=== PATIENT | female | born 1960 | race Caucasian/White ===

== ENCOUNTER 2020-12-27 12:24 | Emergency (ER) | payer OTHER ==
--- NOTE | 2020-12-27 14:00 | EDPHYS ---
Physician Documentation [facility] Name: Khloe Valentino Age: 60 yrs Sex: Female : 1960 Arrival Date: 12/27/2020 Time: 12:26 Bed 11 Private MD: ED Physician Chris Givens HPI: 12/27 13:45 This 60 yrs old Female presents to ER via Ambulatory with complaints of cp Insect Bite. 13:45 The patient's rash thought to be caused by an unknown cause. The rash is located on the cp right suprapubic area and left arm. The rash can be described as burning. Onset: The symptoms/episode began/occurred 2 day(s) ago. Associated signs and symptoms: Pertinent positives: burning sensation, itching, Pertinent negatives: difficulty breathing, fever. Treatment given at home: none. Historical: - Allergies: 12:36 Keflex; ll1 - PMHx: 12:36 None; ll1 - PSHx: 12:36 None; ll1 - Immunization history:: Client reports receiving the 2nd dose of the Covid vaccine, Last tetanus immunization: unknown, Flu vaccine status is unknown. - Social history:: Smoking status: Patient/guardian denies using tobacco, Stopped _ months ago 2. ROS: 13:50 Eyes: Negative for injury, pain, redness, and discharge. cp 13:50 Constitutional: Negative for fever. 13:50 Respiratory: Negative for cough, shortness of breath, wheezing. 13:50 Abdomen/GI: Negative for abdominal pain, nausea, vomiting, and diarrhea. 13:50 Skin: Positive for rash, of the left arm and right suprapubic area. Exam: 13:51 Head/Face: Normocephalic, atraumatic. cp 13:51 Constitutional: The patient appears in no acute distress, alert, awake, non-toxic, well developed, well nourished. 13:51 Cardiovascular: Rate: tachycardic. 13:51 Respiratory: the patient does not display signs of respiratory distress, Respirations: normal. 13:51 Abdomen/GI: Exam negative for discomfort, distension, guarding, Inspection: abdomen appears normal. 13:51 Skin: rash can be described as grouped erythematous vesicles noted to right suprapubic area, isolated erythematous papules noted to left forearm. Vital Signs: 12:34 BP 130 / 109; Pulse 100; Resp 16; Temp 98.1; Pulse Ox 99% ; Weight 53.07 kg; Height 5 ll1 ft. 2 in. (157.48 cm); Pain 3/10; 12:34 Body Mass Index 21.40 (53.07 kg, 157.48 cm) ll1 MDM: 13:48 Patient medically screened. cp 13:55 Differential diagnosis: herpes, folliculitis, cellulitis, abscess. cp 13:59 Data reviewed: vital signs, nurses notes, and as a result, I will discharge patient. cp 13:59 Counseling: I had a detailed discussion with the patient and/or guardian regarding: the cp historical points, exam findings, and any diagnostic results supporting the discharge/admit diagnosis, the need for outpatient follow up, a family practitioner, to return to the emergency department if symptoms worsen or persist or if there are any questions or concerns that arise at home. Administered Medications: No medications were administered Disposition: 17:46 Co-signature as Attending Physician, Chris Givens MD I agree with the assessment and rn plan of care. Attestation: The patient's history, exam findings, diagnostics, and a summary of any interventions or procedures was reviewed in detail with Link GRIMES. Disposition Summary: 12/27/20 13:59 Discharge Ordered Location: Home cp Problem: new cp Symptoms: are unchanged cp Condition: Stable cp Diagnosis - Other herpesviral infection cp - Insect bite (nonvenomous) of left forearm cp Followup: cp - With: Private Physician - When: 2 - 3 days - Reason: Recheck today's complaints Discharge Instructions: - Discharge Summary Sheet cp - Insect Bite, Adult cp - Genital Herpes cp Forms: - Medication Reconciliation Form cp - Thank You Letter cp - Antibiotic Education cp - Prescription Opioid Use cp Prescriptions: - Acyclovir 200 mg Oral Capsule - take 1 capsule by ORAL route 5 times per day; 50 capsule; Refills: 0, Product cp Selection Permitted Signatures: Chris Givens MD MD rn Page, Corey, PA PA cp Lewis, Lynsay RN RN ll1
--- NOTE | 2020-12-27 14:00 | ER ---
Nurse's Notes [facility] Name: Khloe Valentino Age: 60 yrs Sex: Female : 1960 Arrival Date: 12/27/2020 Time: 12:26 Bed 11 Private MD: Diagnosis: Other herpesviral infection;Insect bite (nonvenomous) of left forearm Presentation: 12/27 12:34 Chief complaint: Patient states: Irritation with "little blisters" to R labia area for ll1 2 days. No drainage or fever. Coronavirus screen: Client denies travel out of the [place] in the last 14 days. At this time, the client does not indicate any symptoms associated with coronavirus-19. Ebola Screen: Patient denies travel to an Ebola-affected area in the 21 days before illness onset. Initial Sepsis Screen: Does the patient meet any 2 criteria? HR > 90 bpm. No. Patient's initial sepsis screen is negative. Does the patient have a suspected source of infection? Yes: Skin breakdown/wound. Risk Assessment: Do you want to hurt yourself or someone else? Patient reports no desire to harm self or others. Onset of symptoms was December 26, 2020. 12:34 Method Of Arrival: Ambulatory ll1 12:34 Acuity: TIRSO 4 ll1 Triage Assessment: 13:39 Bite description:. ap3 13:40 Bite description: animal information: vaccination(s). ap3 Historical: - Allergies: 12:36 Keflex; ll1 - PMHx: 12:36 None; ll1 - PSHx: 12:36 None; ll1 - Immunization history:: Client reports receiving the 2nd dose of the Covid vaccine, Last tetanus immunization: unknown, Flu vaccine status is unknown. - Social history:: Smoking status: Patient/guardian denies using tobacco, Stopped _ months ago 2. Screenin:39 Abuse screen: Denies threats or abuse. Nutritional screening: No deficits noted. ap3 Tuberculosis screening: No symptoms or risk factors identified. Fall Risk None identified. Assessment: 13:37 General: Appears in no apparent distress. comfortable, Behavior is calm, cooperative, ap3 appropriate for age. Pain: Complains of pain in right femoral area Pain radiates to right inguinal area Pain began gradually, 2-3 days ago. Neuro: Level of Consciousness is awake, alert, obeys commands, Oriented to person, place, time, situation, Appropriate for age Moves all extremities. Gait is steady, Speech is normal. Cardiovascular: Capillary refill < 3 seconds Patient's skin is warm and dry. Respiratory: Airway is patent Respiratory effort is even, unlabored, Respiratory pattern is regular, symmetrical. GI: No signs and/or symptoms were reported involving the gastrointestinal system. : No signs and/or symptoms were reported regarding the genitourinary system. EENT: No signs and/or symptoms were reported regarding the EENT system. Derm: Skin is healthy with good turgor, Skin is pink, warm \\T\\ dry. Wound noted right femoral area. Vital Signs: 12:34 BP 130 / 109; Pulse 100; Resp 16; Temp 98.1; Pulse Ox 99% ; Weight 53.07 kg; Height 5 ll1 ft. 2 in. (157.48 cm); Pain 3/10; 12:34 Body Mass Index 21.40 (53.07 kg, 157.48 cm) ll1 ED Course: 12:26 Patient arrived in ED. mr 12:35 Triage completed. ll1 12:36 Arm band placed on. ll1 13:37 Britni Fajardo, DAVID is Primary Nurse. ap3 13:39 Patient has correct armband on for positive identification. Placed in gown. Bed in low ap3 position. Call light in reach. Side rails up X 1. Pulse ox on. NIBP on. Door closed. Noise minimized. 13:40 Link Hernandez PA is PHCP. cp 13:40 Chris Givens MD is Attending Physician. cp 14:10 No provider procedures requiring assistance completed. Patient did not have IV access ap3 during this emergency room visit. Administered Medications: No medications were administered Outcome: 13:59 Discharge ordered by . cp 14:10 Discharged to home ambulatory. ap3 14:10 Condition: good 14:10 Discharge instructions given to patient, Instructed on discharge instructions, follow up and referral plans. medication usage, safe sex practices, wound care, Demonstrated understanding of instructions, follow-up care, medications, wound care, Prescriptions given X 1. 14:11 Patient left the ED. ap3 Signatures: Shan Chiara mr Link Hernandez PA PA cp Prokisch, Amanda, RN RN ap3 Dwight, Lynsay, RN RN ll1
[2020-12-27 15:06] VITALS: BP 130/109; TEMP 98.1; O2SAT 99
== END 2020-12-27 14:11 | disposition home or self-care (01) ==
LOC: ER 12:24
DX: B00.89 Other herpesviral infection (principal); S50.862A Insect bite (nonvenomous) of left forearm, initial encounter; Z88.8 Allergy status to other drugs, medicaments and biological substances
CPT/HCPCS: 99283